=== PATIENT | male | born 1950 | race Caucasian/White ===

== ENCOUNTER 2023-03-20 11:28 | Inpatient (IN) | payer OTHER ==
[~2023-03-20] VITALS: Ht 165.1 cm; Wt 57.6 kg
[~2023-03-20 11:28] MED LIST: AMBIEN10 MG PO; DOCUSATE SODIU100 MG PO; PERCOCET 5/3251 TAB PO
[2023-03-20] MEDS ORDERED: ATORVASTATIN CA40 MG PO (11:52)
[2023-03-25] MEDS ORDERED: FLEET BISACODYL5 MG (08:08)
[2023-03-25] MEDS ORDERED: PRAVASTATIN SOD40 MG (08:09)
[2023-03-25] MEDS ORDERED: DICLOFENAC POTA50 MG (08:09)
[2023-03-25] MEDS ORDERED: METRONIDAZOLE45 GM (08:09)
[2023-03-25] MEDS ORDERED: BETAMETHASONE V15 GM (08:09)
[2023-03-25] MEDS ORDERED: LATANOPROST2.5 ML (08:09)
[2023-03-25] MEDS ORDERED: TIMOLOL MALEATE5 M4 (08:09)
[2023-03-25] MEDS ORDERED: MEDROLPACK PO (10:05)
[2023-03-25] MEDS ORDERED: PERCOCET 5-3251 EACH PO (10:05)
[2023-03-25] MEDS ORDERED: COLACE100 MG PO (10:06)
[2023-03-26] MEDS ORDERED: BACTRIM DS TAB1 EACH PO (07:25)
== END 2023-03-26 14:12 | disposition home or self-care (01) | DRG 473 ==
LOC: SURG 03-25 07:49 → O/R 03-25 07:49 → SURG 03-25 11:30
PROVIDERS: ADMIT Orthopaedic Surgery Orthopaedic Surgery of the Spine; ATTEND Orthopaedic Surgery Orthopaedic Surgery of the Spine
PROC: 0RT30ZZ Resection of Cervical Vertebral Disc, Open Approach (ICD-10-PCS; 2023-03-25)
PROC: 07DS0ZZ Extraction of Vertebral Bone Marrow, Open Approach (ICD-10-PCS; 2023-03-25)
PROC: 0PB30ZZ Excision of Cervical Vertebra, Open Approach (ICD-10-PCS; 2023-03-25)
PROC: 4A11X4G Monitoring of Peripheral Nervous Electrical Activity, Intraoperative, External Approach (ICD-10-PCS; 2023-03-25)
PROC: 4A12X4Z Monitoring of Cardiac Electrical Activity, External Approach (ICD-10-PCS; 2023-03-25)
PROC: 0RG20A0 Fusion of 2 or more Cervical Vertebral Joints with Interbody Fusion Device, Anterior Approach, Anterior Column, Open Approach (ICD-10-PCS; principal; 2023-03-25 14:00)
DX: M50.01 Cervical disc disorder with myelopathy, high cervical region (principal); M48.02 Spinal stenosis, cervical region